=== PATIENT | male | born 1950 | race Caucasian/White ===

== ENCOUNTER → 2017-04-24 15:15 | Outpatient (CLI) | payer MEDICARE, SELFPAY ==
[2017-04-24 18:29] LABS: ALB/GLOB Ratio 0.9 RATIO (0.9-2.4); AST(SGOT) 22 U/L (15-37); Alanine Aminotransfer ALT/SGPT 32 U/L (16-61); Albumin, Serum 3.5 g/dL (3.2-5.0); Alkaline Phosphatase 75 U/L (45-117); Anion Gap 11 (5-15); BUN 35 mg/dL (7-18); BUN/Creat Ratio 19.3 RATIO (10-20); Calcium,Total 9.1 mg/dL (8.5-10.1); Chloride 104 mmol/L (98-107); Creatinine, Serum 1.81 mg/dL (0.70-1.30); EST Glomerular Filtration Rate 40 mL/min (>60); Est Glom Filt Rate - Afr Amer 48 mL/min (>60); Globulin 3.8 g/dL (2.2-4.2); Glucose 148 mg/dL (74-106); Potassium 4.3 mmol/L (3.5-5.1); Prolactin 7.6 ng/mL; Protein, Total 7.3 g/dL (6.4-8.2); Sodium Level 140 mmol/L (136-145)
== END ==
PROVIDERS: Family Provider Family Medicine; PCP Family Medicine; Visit Provider Family Medicine
DX: S81.809A Unspecified open wound, unspecified lower leg, initial encounter (principal)
CPT/HCPCS: 36415; 80053; 84146; 87070; 87077; 87205

== ENCOUNTER → 2017-05-05 11:29 | Outpatient (CLI) | payer MEDICARE, SELFPAY ==
[2017-05-05 12:29] LABS: AST(SGOT) 20 U/L (15-37); Alanine Aminotransfer ALT/SGPT 29 U/L (16-61); Albumin, Serum 3.5 g/dL (3.2-5.0); Alkaline Phosphatase 81 U/L (45-117); Bilirubin, Direct 0.12 mg/dL (0.00-0.30); Cholesterol 102 mg/dL (200); Globulin 4.1 g/dL (2.2-4.2); High Density Lipoprotein 26 mg/dL; Protein, Total 7.6 g/dL (6.4-8.2); Triglycerides 193 mg/dL; Very Low Density Lipoprotein 39 mg/dL (5-40)
== END ==
PROVIDERS: Family Provider Family Medicine; PCP Family Medicine; Visit Provider Internal Medicine Cardiovascular Disease
DX: E78.5 Hyperlipidemia, unspecified (principal)
CPT/HCPCS: 36415; 80061; 80076

== ENCOUNTER → 2017-05-20 16:10 | Outpatient (CLI) | payer MEDICARE, SELFPAY ==
[2017-05-20 18:13] LABS: Anion Gap 11 (5-15); BUN 43 mg/dL (7-18); BUN/Creat Ratio 23.5 RATIO (10-20); Calcium,Total 9.5 mg/dL (8.5-10.1); Chloride 102 mmol/L (98-107); Creatinine, Serum 1.83 mg/dL (0.70-1.30); EST Glomerular Filtration Rate 39 mL/min (>60); Est Glom Filt Rate - Afr Amer 48 mL/min (>60); Glucose 217 mg/dL (74-106); Potassium 4.5 mmol/L (3.5-5.1); Sodium Level 136 mmol/L (136-145)
[2017-05-24 20:07] LABS: Testosterone, Free 2.58 ng/dL (5.00-21.00)
[2017-05-25 08:40] LABS: Testosterone, % Free 2.48 % (1.50-4.20); Testosterone, Total 104 ng/dL (264-916)
== END ==
PROVIDERS: Family Provider Family Medicine; PCP Family Medicine; Visit Provider Family Medicine
DX: N18.3 Chronic kidney disease, stage 3 (moderate) (principal); E29.1 Testicular hypofunction
CPT/HCPCS: 36415; 80048; 84402; 84403

== ENCOUNTER → 2017-06-09 08:28 | Outpatient (CLI) | payer MEDICARE, SELFPAY ==
[2017-06-09 10:13] LABS: ALB/GLOB Ratio 0.8 RATIO (0.9-2.4); AST(SGOT) 32 U/L (15-37); Alanine Aminotransfer ALT/SGPT 36 U/L (16-61); Albumin, Serum 3.4 g/dL (3.2-5.0); Alkaline Phosphatase 73 U/L (45-117); Anion Gap 14 (5-15); BUN 45 mg/dL (7-18); BUN/Creat Ratio 23.1 RATIO (10-20); Calcium,Total 9.6 mg/dL (8.5-10.1); Chloride 102 mmol/L (98-107); Creatinine, Serum 1.95 mg/dL (0.70-1.30); EST Glomerular Filtration Rate 37 mL/min (>60); Est Glom Filt Rate - Afr Amer 44 mL/min (>60); Ferritin 85 ng/mL (26-388); Glucose 62 mg/dL (74-106); Iron 50 ug/dL (65-175); Iron Binding Capacity,Total 316 ug/dL (250-450); Potassium 3.9 mmol/L (3.5-5.1); Protein, Total 7.4 g/dL (6.4-8.2); Sodium Level 139 mmol/L (136-145)
[2017-06-09 15:04] LABS: Absolute Lymphocyte Count 2.05 X10^3/ul (0.83-4.51); Absolute Neutrophil Count 4.1 X10^3/uL (2.0-7.7); Basophil# 0.03 X10^3/uL; Basophil% 0.4 % (0-1); Eosinophil# 0.29 X10^3/uL; Eosinophils% 3.9 % (0-5); Hematocrit 38.9 % (40-54); Lymphocyte # 2.05 X10^3/ul (4.0); Lymphocyte % 27.9 % (19-41); Mean Corp Hgb Conc 30.8 g/gl (32-36); Mean Corpuscular Hgb 27.6 pg (27.0-32.0); Mean Corpuscular Volume 89.4 fL (80-94); Mean Platelet Vol. 9.8 fl (6.2-12.0); Monocyte# 0.89 X10^3/uL; Monocyte% 12.1 % (0-10); Neutrophil # 4.07 X10^3/uL (2.7-7.7); Neutrophil % 55.4 % (47-70); Platelet Count 239 K/mm3 (150-450); RBC Distribution Width CV 15.3 % (11.6-14.6); RBC Distribution Width SD 49.7 fl (35.1-43.9); RET-HE 31.8 pg (30-35); Red Blood Count 4.35 M/mm3 (4.6-6.2); Reticulocyte Count 1.05 % (0.5-1.5); White Blood Count 7.4 K/mm3 (4.4-11.0)
[2017-06-09 15:05] LABS: POSITIVE COUNT NO; POSITIVE DIFFERENTIAL NO; POSITIVE MORPHOLOGY NO
[2017-06-10 20:09] LABS: Free Kappa Light Chains 48.9 mg/L (3.3-19.4); Free Lambda Light Chains 1196.4 mg/L (5.7-26.3); Immunoglobulin A 253 mg/dL (61-437); Immunoglobulin G 814 mg/dL (700-1600); PROEL- Albumin 3.4 g/dL (2.9-4.4); PROEL- Alpha-1 Globulin 0.3 g/dL (0.0-0.4); PROEL- Beta Globulin 1.2 g/dL (0.7-1.3); PROEL- Gamma Globulin 0.9 g/dL (0.4-1.8); PROEL- Globulin, Total 3.3 g/dL (2.2-3.9); PROEL- TOTAL PROTEIN 6.7 g/dL (6.0-8.5)
[2017-06-11 11:23] LABS: Immunoglobulin M 20 mg/dL (20-172)
== END ==
PROVIDERS: Family Provider Family Medicine; PCP Family Medicine; Visit Provider Internal Medicine Medical Oncology
DX: D50.9 Iron deficiency anemia, unspecified (principal)
CPT/HCPCS: 36415; 80053; 82728; 82784; 83540; 83550; 83883; 84165; 85025; 85045

== ENCOUNTER → 2017-06-25 15:52 | Outpatient (CLI) | payer MEDICARE, SELFPAY ==
--- NOTE | 2017-06-25 15:53 | CT_ITS ---
STUDY: CT BRAIN WITHOUT CONTRAST REASON FOR EXAM: Male, 66 years old. Memory loss. Lower extremity weakness. RADIATION DOSAGE (If Supplied By Facility): CTDIvol = ( 44.99 ) mGy, DLP = ( 812.98 ) mGycm TECHNIQUE: Transaxial CT imaging of the brain was performed without administration of intravenous contrast material. Individualized dose optimization techniques were used for this CT. COMPARISON: 09/11/2015. FINDINGS: Normal soft tissue structures. Normal calvarium. There is mild cerebral atrophy with widening of the extra-axial spaces and ventricular dilatation. There are areas of decreased attenuation within the white matter tracts of the supratentorial brain, consistent with microvascular disease changes. Normal basal ganglia and thalami. Normal brainstem. There is mild cerebellar atrophy. 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 There is no intracranial hemorrhage. There are no findings of an acute ischemic infarction. Normal visualized paranasal sinuses. CT/Brain/Head without Contrast IMPRESSION: Mild atrophy and White matter disease. No acute abnormality. Electronically Signed: Umesh Jules MD at 23:50 EDT , Service support ,
== END ==
PROVIDERS: Family Provider Family Medicine; PCP Family Medicine Geriatric Medicine; Visit Provider Family Medicine
DX: R32 Unspecified urinary incontinence (principal); R41.3 Other amnesia; R26.9 Unspecified abnormalities of gait and mobility
CPT/HCPCS: 70450

== ENCOUNTER → 2017-07-04 08:15 | Outpatient (CLI) | payer MEDICARE, SELFPAY | PROVIDERS: Family Provider Family Medicine; PCP Family Medicine Geriatric Medicine; Visit Provider Nurse Practitioner Acute Care | DX: G47.33 Obstructive sleep apnea (adult) (pediatric) (principal) | CPT/HCPCS: 98960; G0463 ==

== ENCOUNTER → 2017-07-14 08:27 | Outpatient (CLI) | payer MEDICARE, SELFPAY ==
[2017-07-14 09:12] LABS: Absolute Lymphocyte Count 1.51 X10^3/ul (0.83-4.51); Absolute Neutrophil Count 4.7 X10^3/uL (2.0-7.7); Basophil# 0.03 X10^3/uL; Basophil% 0.4 % (0-1); Eosinophil# 0.22 X10^3/uL; Eosinophils% 2.9 % (0-5); Hematocrit 36.8 % (40-54); Hemoglobin 11.7 g/dl (13.0-16.5); Lymphocyte # 1.51 X10^3/ul (4.0); Lymphocyte % 20.2 % (19-41); Mean Corp Hgb Conc 31.8 g/gl (32-36); Mean Corpuscular Hgb 28.3 pg (27.0-32.0); Mean Corpuscular Volume 89.1 fL (80-94); Mean Platelet Vol. 10.5 fl (6.2-12.0); Monocyte# 0.97 X10^3/uL; Neutrophil # 4.72 X10^3/uL (2.7-7.7); Neutrophil % 63.1 % (47-70); Platelet Count 165 K/mm3 (150-450); RBC Distribution Width CV 16.3 % (11.6-14.6); RBC Distribution Width SD 52.6 fl (35.1-43.9); Red Blood Count 4.13 M/mm3 (4.6-6.2); White Blood Count 7.5 K/mm3 (4.4-11.0)
[2017-07-14 09:13] LABS: POSITIVE COUNT NO; POSITIVE DIFFERENTIAL NO; POSITIVE MORPHOLOGY NO
[2017-07-14 09:45] LABS: AST(SGOT) 24 U/L (15-37); Alanine Aminotransfer ALT/SGPT 33 U/L (16-61); Albumin, Serum 3.5 g/dL (3.2-5.0); Alkaline Phosphatase 68 U/L (45-117); Anion Gap 9 (5-15); BUN 43 mg/dL (7-18); BUN/Creat Ratio 20.7 RATIO (10-20); Calcium,Total 9.5 mg/dL (8.5-10.1); Chloride 106 mmol/L (98-107); Cholesterol 105 mg/dL (200); Creatinine, Serum 2.08 mg/dL (0.70-1.30); EST Glomerular Filtration Rate 34 mL/min (>60); Est Glom Filt Rate - Afr Amer 41 mL/min (>60); Globulin 3.6 g/dL (2.2-4.2); Glucose 108 mg/dL (74-106); High Density Lipoprotein 24 mg/dL; Potassium 4.6 mmol/L (3.5-5.1); Protein, Total 7.1 g/dL (6.4-8.2); Sodium Level 140 mmol/L (136-145); Triglycerides 316 mg/dL; Very Low Density Lipoprotein 63 mg/dL (5-40)
[2017-07-14 09:49] LABS: Hemoglobin A1c 7.6 % (4.2-6.3)
[2017-07-14 10:34] LABS: Microalbumin:Creatinine Ratio 234.8 mg/g CRE (<30 mg/g CRE)
== END ==
PROVIDERS: Family Provider Family Medicine; PCP Family Medicine; Visit Provider Family Medicine
DX: E11.40 Type 2 diabetes mellitus with diabetic neuropathy, unspecified (principal)
CPT/HCPCS: 36415; 80053; 80061; 82043; 82570; 83036; 85025

== ENCOUNTER → 2017-09-13 10:38 | Outpatient (CLI) | payer MEDICARE, SELFPAY ==
[2017-09-13 12:22] LABS: Absolute Lymphocyte Count 1.25 X10^3/ul (0.83-4.51); Absolute Neutrophil Count 4.8 X10^3/uL (2.0-7.7); Basophil# 0.03 X10^3/uL; Basophil% 0.4 % (0-1); Eosinophil# 0.23 X10^3/uL; Eosinophils% 3.2 % (0-5); Hematocrit 35.7 % (40-54); Hemoglobin 11.5 g/dl (13.0-16.5); Lymphocyte # 1.25 X10^3/ul (4.0); Lymphocyte % 17.6 % (19-41); Mean Corp Hgb Conc 32.2 g/gl (32-36); Mean Corpuscular Hgb 29.5 pg (27.0-32.0); Mean Corpuscular Volume 91.5 fL (80-94); Mean Platelet Vol. 10.4 fl (6.2-12.0); Monocyte# 0.83 X10^3/uL; Monocyte% 11.7 % (0-10); Neutrophil # 4.77 X10^3/uL (2.7-7.7); Platelet Count 169 K/mm3 (150-450); RBC Distribution Width CV 14.9 % (11.6-14.6); RBC Distribution Width SD 48.7 fl (35.1-43.9); White Blood Count 7.1 K/mm3 (4.4-11.0)
[2017-09-13 12:23] LABS: POSITIVE COUNT NO; POSITIVE DIFFERENTIAL NO; POSITIVE MORPHOLOGY NO
[2017-09-13 12:42] LABS: AST(SGOT) 24 U/L (15-37); Alanine Aminotransfer ALT/SGPT 33 U/L (16-61); Albumin, Serum 3.5 g/dL (3.2-5.0); Alkaline Phosphatase 68 U/L (45-117); Anion Gap 11 (5-15); BUN 41 mg/dL (7-18); BUN/Creat Ratio 21.8 RATIO (10-20); Calcium,Total 9.5 mg/dL (8.5-10.1); Chloride 104 mmol/L (98-107); Creatinine, Serum 1.88 mg/dL (0.70-1.30); EST Glomerular Filtration Rate 38 mL/min (>60); Est Glom Filt Rate - Afr Amer 46 mL/min (>60); Ferritin 49 ng/mL (26-388); Globulin 3.6 g/dL (2.2-4.2); Glucose 121 mg/dL (74-106); Iron 44 ug/dL (65-175); Iron Binding Capacity,Total 337 ug/dL (250-450); PERCENT IRON SATURATION 13.1 % (15.0-55.0); Potassium 4.4 mmol/L (3.5-5.1); Protein, Total 7.1 g/dL (6.4-8.2); Sodium Level 141 mmol/L (136-145)
[2017-09-15 16:10] LABS: Free Kappa Light Chains 43.2 mg/L (3.3-19.4); Free Lambda Light Chains 1131.5 mg/L (5.7-26.3); PROEL- A/G Ratio 1.4 (0.7-1.7); PROEL- Albumin 3.7 g/dL (2.9-4.4); PROEL- Alpha-1 Globulin 0.2 g/dL (0.0-0.4); PROEL- Alpha-2 Globulin 0.9 g/dL (0.4-1.0); PROEL- Beta Globulin 0.9 g/dL (0.7-1.3); PROEL- Gamma Globulin 0.6 g/dL (0.4-1.8); PROEL- Globulin, Total 2.6 g/dL (2.2-3.9); PROEL- TOTAL PROTEIN 6.3 g/dL (6.0-8.5)
== END ==
PROVIDERS: Family Provider Family Medicine; PCP Family Medicine; Visit Provider Internal Medicine Medical Oncology
DX: D50.9 Iron deficiency anemia, unspecified (principal); D47.2 Monoclonal gammopathy
CPT/HCPCS: 36415; 80053; 82728; 83540; 83550; 83883; 84165; 85025

== ENCOUNTER → 2017-10-09 12:19 | Outpatient (CLI) | payer MEDICARE, SELFPAY ==
[2017-10-09 12:58] VITALS: PULSE 89; PULSE 92; PULSE 94; PULSE 95; PULSE 97; O2SAT 97; O2SAT 98
--- NOTE | 2017-10-09 13:03 | CPS ---
walked until 230 then rested until 257 continued to walk until 320 rested until 345 then started walking again until 400 rested until 520 and then finish the test to 6mins. He also stated that his hip sockets had pin and lower legs ached.
--- NOTE | 2017-10-09 14:57 | WT_ITS ---
PSN 6 Minute Walk Test - 6 Minute Walk Test 6 Minute Walk Test: 6 Minute Walk Test PSN:6-Minute Walk Test Start: 10/09/17 12: 58 Freq: Status: Active Protocol: [id number] Document 10/09/17 12:58 FR (Rec: 10/09/17 13:13 FR [id number]) 6 Minute Walk Test Date Performed 10/09/17 Time Performed 13:45 Height 5 ft 11 in Weight: 127.006 kg Weight in Pounds 280.[address]: Dank Rachel Assistive device used: Cane Pre-test Oxygen Delivery Method Room Air Pulse Ox (%) 98 Pulse Rate (60-100 beats/min) 92 Dyspnea Kajal Scale (0-10) 8 Exertion Kajal Scale (6-20) 13 1st minute Oxygen Delivery Method Room Air Pulse Ox (%) 97 Pulse Rate (60-100 beats/min) 94 2nd minute Oxygen Delivery Method Room Air Pulse Ox (%) 98 Pulse Rate (60-100 beats/min) 89 Number of Rests Taken 1 3rd minute Oxygen Delivery Method Room Air Pulse Ox (%) 98 Pulse Rate (60-100 beats/min) 94 Number of Rests Taken 1 4th minute Oxygen Delivery Method Room Air Pulse Ox (%) 98 Pulse Rate (60-100 beats/min) 97 Number of Rests Taken 1 5th minute Oxygen Delivery Method Room Air Pulse Ox (%) 98 Pulse Rate (60-100 beats/min) 97 6th minute Oxygen Delivery Method Room Air Pulse Ox (%) 98 Pulse Rate (60-100 beats/min) 95 Dyspnea Kajal Scale (0-10) 10 Exertion Kajal Scale (6-20) 14 Post-test Oxygen Delivery Method Room Air Pulse Ox (%) 97 Pulse Rate (60-100 beats/min) 97 Full Laps Walked 5 Partial Lap, Number of Tiles Walked 8 Total Distance Walked (ft) 303 10/09/17 13:03 Cardiopulmonary Services by Rosalina Mcknight walked until 230 then rested until 257 continued to walk until 320 rested until 345 then started walking again until 400 rested until 520 and then finish the test to 6mins. He also stated that his hip sockets had pin and lower legs ached. Initialized on 10/09/17 13:03 - END OF NOTE - Interpretation Interpretation: The patient was able to ambulate only 303 feet over the course of 6 minutes on room air with the assistance of a cane and 3 breaks. The patient experienced no significant desaturation or tachycardia during testing. These findings are consistent with a musculoskeletal limitation exercise tolerance. - Recommendations Recommendations: No supplemental oxygen is indicated at this time. However, sensitivity for desaturation is significantly limited secondary to minimal distance traveled.
== END ==
PROVIDERS: Family Provider Family Medicine; PCP Family Medicine; Visit Provider Internal Medicine Critical Care Medicine
DX: R06.02 Shortness of breath (principal)
CPT/HCPCS: 94618

== ENCOUNTER → 2017-10-13 08:20 | Outpatient (CLI) | payer MEDICARE, SELFPAY ==
[2017-10-13 09:19] LABS: Hemoglobin A1c 6.6 % (4.2-6.3)
[2017-10-13 09:30] LABS: Anion Gap 8 (5-15); BUN 38 mg/dL (7-18); BUN/Creat Ratio 16.2 RATIO (10-20); Calcium,Total 10.5 mg/dL (8.5-10.1); Chloride 104 mmol/L (98-107); Creatinine, Serum 2.35 mg/dL (0.70-1.30); EST Glomerular Filtration Rate 29 mL/min (>60); Est Glom Filt Rate - Afr Amer 36 mL/min (>60); Glucose 118 mg/dL (74-106); Potassium 4.4 mmol/L (3.5-5.1); Sodium Level 138 mmol/L (136-145)
[2017-10-13 15:54] LABS: Microalbumin:Creatinine Ratio 381.2 mg/g CRE (<30 mg/g CRE)
== END ==
PROVIDERS: Family Provider Family Medicine; PCP Family Medicine; Visit Provider Family Medicine
DX: E11.40 Type 2 diabetes mellitus with diabetic neuropathy, unspecified (principal); E11.65 Type 2 diabetes mellitus with hyperglycemia; E78.5 Hyperlipidemia, unspecified; N18.3 Chronic kidney disease, stage 3 (moderate)
CPT/HCPCS: 36415; 80048; 82043; 82570; 83036

== ENCOUNTER → 2017-11-06 15:35 | Outpatient (CLI) | payer MEDICARE, SELFPAY | PROVIDERS: Family Provider Family Medicine; PCP Family Medicine; Visit Provider Physician Assistant Medical | DX: R06.02 Shortness of breath (principal) | CPT/HCPCS: 83880 ==

== ENCOUNTER → 2017-11-10 12:55 | Outpatient (CLI) | payer MEDICARE, SELFPAY ==
--- NOTE | 2017-11-10 14:23 | PFTCOMP ---
COMPLETE PULMONARY FUNCTION TEST INTERPRETATION Brief HPI: Patient is a 67 year old male, currently under the care of myself, who presents to [facility] for complete pulmonary function tests secondary to diagnosis of dyspnea. Respiratory therapist reports good effort and reproducible results. Interpretation: Forced expiration spirometry shows no large airways obstructive ventilatory defect with an FEV1 of 72% predicted. There is no significant bronchodilator response by ATS criteria. Spirograms are of good quality and plateau normally. The respiratory flow volume loop shows decreased expiratory flow rates at high lung volumes consistent with small airways obstruction. Lung volumes by body plethysmography show a decreased total lung capacity at 4.52 L, 67% predicted. All other lung volumes are reduced symmetrically. Diffusion capacity by carbon monoxide is decreased at 57% predicted. The airway resistance is normal. Compared to previous pulmonary function tests from 07/12/2016, there has been a significant worsening in lung volumes and DLCO. Impression: Mild restrictive ventilatory defect with a symmetric reduction diffusing capacity and significant worsening compared to previous testing.
== END ==
PROVIDERS: Family Provider Family Medicine; PCP Family Medicine; Visit Provider Internal Medicine Critical Care Medicine
DX: R06.02 Shortness of breath (principal)
CPT/HCPCS: 94060; 94726; 94729

== ENCOUNTER → 2017-11-13 15:10 | Outpatient (CLI) | payer MEDICARE, SELFPAY | PROVIDERS: Family Provider Family Medicine; PCP Family Medicine; Visit Provider Physician Assistant Medical | DX: G47.33 Obstructive sleep apnea (adult) (pediatric) (principal); R06.02 Shortness of breath | CPT/HCPCS: 93306; Q9957; A4216; C8929 ==

== ENCOUNTER → 2017-11-22 11:18 | Outpatient (CLI) | payer MEDICARE, SELFPAY ==
[2017-11-22 12:28] LABS: Anion Gap 10 (5-15); BUN 55 mg/dL (7-18); BUN/Creat Ratio 25.9 RATIO (10-20); Calcium,Total 9.9 mg/dL (8.5-10.1); Chloride 108 mmol/L (98-107); Creatinine, Serum 2.12 mg/dL (0.70-1.30); EST Glomerular Filtration Rate 33 mL/min (>60); Est Glom Filt Rate - Afr Amer 40 mL/min (>60); Glucose 90 mg/dL (74-106); Potassium 5.2 mmol/L (3.5-5.1); Sodium Level 140 mmol/L (136-145)
== END ==
PROVIDERS: Family Provider Family Medicine; PCP Family Medicine; Visit Provider Physician Assistant Medical
DX: I10 Essential (primary) hypertension (principal)
CPT/HCPCS: 36415; 80048

== ENCOUNTER → 2017-12-13 11:23 | Outpatient (CLI) | payer MEDICARE, SELFPAY ==
[2017-12-13 12:00] LABS: Absolute Lymphocyte Count 1.38 X10^3/ul (0.83-4.51); Absolute Neutrophil Count 2.8 X10^3/uL (2.0-7.7); Basophil# 0.03 X10^3/uL; Basophil% 0.6 % (0-1); Eosinophils% 7.6 % (0-5); Hematocrit 36.3 % (40-54); Hemoglobin 11.8 g/dl (13.0-16.5); Lymphocyte # 1.38 X10^3/ul (4.0); Lymphocyte % 26.1 % (19-41); Mean Corp Hgb Conc 32.5 g/gl (32-36); Mean Corpuscular Hgb 29.1 pg (27.0-32.0); Mean Corpuscular Volume 89.4 fL (80-94); Mean Platelet Vol. 9.6 fl (6.2-12.0); Monocyte% 13.3 % (0-10); Neutrophil # 2.76 X10^3/uL (2.7-7.7); Neutrophil % 52.2 % (47-70); POSITIVE COUNT NO; POSITIVE DIFFERENTIAL NO; POSITIVE MORPHOLOGY NO; Platelet Count 143 K/mm3 (150-450); RBC Distribution Width CV 15.6 % (11.6-14.6); RBC Distribution Width SD 50.1 fl (35.1-43.9); Red Blood Count 4.06 M/mm3 (4.6-6.2); White Blood Count 5.3 K/mm3 (4.4-11.0)
[2017-12-13 12:48] LABS: ALB/GLOB Ratio 0.9 RATIO (0.9-2.4); AST(SGOT) 38 U/L (15-37); Alanine Aminotransfer ALT/SGPT 45 U/L (16-61); Albumin, Serum 3.4 g/dL (3.2-5.0); Alkaline Phosphatase 67 U/L (45-117); Anion Gap 8 (5-15); BUN 38 mg/dL (7-18); BUN/Creat Ratio 20.2 RATIO (10-20); Calcium,Total 9.5 mg/dL (8.5-10.1); Chloride 106 mmol/L (98-107); Creatinine, Serum 1.88 mg/dL (0.70-1.30); EST Glomerular Filtration Rate 38 mL/min (>60); Est Glom Filt Rate - Afr Amer 46 mL/min (>60); Ferritin 49 ng/mL (26-388); Globulin 3.6 g/dL (2.2-4.2); Glucose 76 mg/dL (74-106); Iron 54 ug/dL (65-175); Iron Binding Capacity,Total 355 ug/dL (250-450); PERCENT IRON SATURATION 15.2 % (15.0-55.0); Potassium 4.7 mmol/L (3.5-5.1); Sodium Level 139 mmol/L (136-145)
[2017-12-13 12:54] LABS: AST(SGOT) 39 U/L (15-37); Alanine Aminotransfer ALT/SGPT 45 U/L (16-61); Albumin, Serum 3.5 g/dL (3.2-5.0); Alkaline Phosphatase 66 U/L (45-117); Bilirubin, Direct 0.13 mg/dL (0.00-0.30); Cholesterol 95 mg/dL (200); Globulin 3.5 g/dL (2.2-4.2); High Density Lipoprotein 24 mg/dL; Triglycerides 198 mg/dL; Very Low Density Lipoprotein 40 mg/dL (5-40)
[2017-12-15 16:10] LABS: Free Kappa Light Chains 44.4 mg/L (3.3-19.4); Free Lambda Light Chains 941.5 mg/L (5.7-26.3); Immunoglobulin A 220 mg/dL (61-437); Immunoglobulin G 825 mg/dL (700-1600); PROEL- A/G Ratio 1.2 (0.7-1.7); PROEL- Albumin 3.4 g/dL (2.9-4.4); PROEL- Alpha-1 Globulin 0.2 g/dL (0.0-0.4); PROEL- Alpha-2 Globulin 0.9 g/dL (0.4-1.0); PROEL- Gamma Globulin 0.7 g/dL (0.4-1.8); PROEL- Globulin, Total 2.9 g/dL (2.2-3.9); PROEL- TOTAL PROTEIN 6.3 g/dL (6.0-8.5)
[2017-12-16 09:43] LABS: Immunoglobulin M 23 mg/dL (20-172)
== END ==
PROVIDERS: Internal Medicine Cardiovascular Disease; Internal Medicine Medical Oncology; Family Provider Family Medicine; PCP Family Medicine; Referring Provider Physician Assistant Medical; Visit Provider Physician Assistant Medical
DX: I10 Essential (primary) hypertension (principal); D47.2 Monoclonal gammopathy; D50.9 Iron deficiency anemia, unspecified; E78.5 Hyperlipidemia, unspecified; Z79.899 Other long term (current) drug therapy
CPT/HCPCS: 36415; 80053; 80061; 80076; 82728; 82784; 83540; 83550; 83883; 84165; 85025

== ENCOUNTER → 2018-01-09 12:19 | Outpatient (CLI) | payer MEDICARE, SELFPAY ==
[2018-01-09 13:33] LABS: Anion Gap 9 (5-15); BUN 37 mg/dL (7-18); BUN/Creat Ratio 18.1 RATIO (10-20); Calcium,Total 9.3 mg/dL (8.5-10.1); Chloride 105 mmol/L (98-107); Creatinine, Serum 2.04 mg/dL (0.70-1.30); EST Glomerular Filtration Rate 35 mL/min (>60); Est Glom Filt Rate - Afr Amer 42 mL/min (>60); Glucose 114 mg/dL (74-106); Potassium 4.5 mmol/L (3.5-5.1); Sodium Level 139 mmol/L (136-145)
[2018-01-09 13:37] LABS: Hemoglobin A1c 6.1 % (4.2-6.3)
[2018-01-09 13:41] LABS: PTHIN 39.7 pg/mL (18.4-80.1)
== END ==
PROVIDERS: Family Provider Family Medicine; PCP Family Medicine; Referring Provider Family Medicine; Visit Provider Family Medicine
DX: E11.40 Type 2 diabetes mellitus with diabetic neuropathy, unspecified (principal); E11.65 Type 2 diabetes mellitus with hyperglycemia; E78.5 Hyperlipidemia, unspecified; N18.3 Chronic kidney disease, stage 3 (moderate); D63.1 Anemia in chronic kidney disease
CPT/HCPCS: 36415; 80048; 83036; 83970

== ENCOUNTER 2018-02-07 07:04 | Emergency (ER) | payer MEDICARE, SELFPAY ==
[2018-02-07 07:05] VITALS: BMI 39.9
--- NOTE | 2018-02-07 07:20 | ED.DCSUM_ITS ---
- ER Visit Summary Date of Service: 02/07/18 Chief Complaint: Full arrest History of Present Illness: The patient is a 67 M who had a witnessed arrest at home. Per EMS, his spouse called 911 within 3 minutes. The arrest occurred around 6:36 AM. For EMS, he was in asystole the whole time. They did place an endotracheal tube. Auto pulse was used. He had an IO placed in his right tibia. According to EMS, he has a history of diabetes. Physical Examination: Auto pulse in progress. Patient is cyanotic. No spontaneous respirations. No pulse. No other pertinent findings emergently. Test Results: Glucose was 140. Emergency Department Course and Treatment: Patient was in asystole and had continuous CPR in the emergency department with the auto pulse device. IV access was obtained. He received a total of 2 doses of epinephrine. I evaluated the airway and there was no color change with capnography. This was replaced. I did attempt using direct visualization, but could not visualize the cords. I did then use a Glidescope and was able to pass a 7.5 ET tube. I did visualize the tube pass through the cords and he had good color change. CPR was continued here in the ED until 7:11 AM. At that time I pronounced the patient. I felt that any further attempts at resuscitation would be futile and further there were no other interventions to be done. The resuscitation team was completely in agreement. Treatment Plan: As above Disposition: Transfer per family request Impression: 1. Cardiopulmonary arrest This note was generated with [employer] dictation software. It may contain incorrect words, spelling, and punctuation that were not noted in review of the chart prior to signing ED Disposition - Plan for ED Patient: Chief Complaint: CPR Referrals: Man Sellers DO [Primary Care Provider] -
--- NOTE | 2018-02-07 07:20 | NURSING ---
[id number] ALYSSA COWAN CALLED
--- NOTE | 2018-02-07 07:31 | CPS ---
pt intubated by squad, airway checked by ez cap confirming ETT not in airway, pt reintubated by Dr. Milner ETT confirmed to be in airway, equal bilateral breath sounds and color change on EZ cap
[2018-02-10 07:10] LABS: Bedside Glucose 142 mg/dL (70-110)
== END 2018-02-07 07:12 ==
PROVIDERS: Emergency Provider Emergency Medicine; Family Provider Family Medicine; PCP Family Medicine
DX: I46.9 Cardiac arrest, cause unspecified (principal); E11.9 Type 2 diabetes mellitus without complications; Z79.4 Long term (current) use of insulin; Z79.899 Other long term (current) drug therapy
CPT/HCPCS: 31500; 82962; 92950; 99291; J7030; A4216